=== PATIENT | female | born 1965 | race Caucasian/White ===

== ENCOUNTER 2016-05-04 09:50 | Emergency (ER) | payer OTHER ==
[~2016-05-04] VITALS: Wt 64.0 kg
[2016-05-04] MEDS ORDERED: KETOROLAC 60 MG INJ IM STA (10:16)
[2016-05-04] MEDS ORDERED: MED4DP PO (10:18)
[2016-05-04] MEDS ORDERED: TRAM50TA2 PO (10:18)
--- NOTE | 2016-05-04 11:26 | ERD ---
DATE OF SERVICE: HISTORY OF PRESENT ILLNESS: The patient is a 50-year-old female coming in complaining of bilateral arm pain. Patient states she has some neck pain. She states she has had the symptoms before. She takes Valier and meloxicam with no alleviation of symptoms. She denies any recent fevers, no recent falls. Denies any numbness or tingling down her arms, just burning sensation down bilateral arms. No swelling. MEDICAL HISTORY: Diabetes, hypercholesterolemia. ALLERGIES TO MEDICATIONS: DENIES. SURGICAL HISTORY: Ortho surgery to her left shoulder for ligamentous injury and cholecystectomy. SOCIAL HISTORY: Denies. REVIEW OF SYSTEMS: A 12-point review of systems was done. Refer to HPI for positives, all other sy stems negative. PHYSICAL EXAMINATION VITAL SIGNS: Temperature 98, pulse 75, blood pressure 121/70, respiratory rate 20, O2 saturation 99 % on room air. Pain intensity is 0/10. GENERAL: The patient is well-appearing, well-nourished, no acute distress. HEENT: Atraumatic. Conjunctivae are pink. Pupils equal, round, and reactive to light. There is no s cleral icterus. Tympanic membranes clear bilaterally. Oropharynx clear. No nystagmus or photophobia . CHEST: Clear to auscultation bilaterally. There are no rales, wheezes or rhonchi. HEART: Regular rate and rhythm. No murmurs, clicks, rubs or gallops. No S3 or S4. EXTREMITIES: The patient has normal music promoter strength bilaterally with normal radial, ulnar and median nerve innervation. Cap refill is less than 2 seconds. Pulses are intact. Compartments are soft. Patient has normal range of motion with normal strength to bilateral upper extremities with active a nd passive range of motion. SKIN: There is no apparent rash or petechia. The skin is warm and dry. NECK: The patient has mild tenderness to palpation over bilateral paraspinous cervical muscles. Th ere is no midline tenderness, no bony step-offs, no crepitus on exam. DIAGNOSIS: Cervical radiculopathy and nerve pain. MEDICAL DECISION MAKING: Patient is diabetic. There may be some concern for diabetic neuropathy ve rsus possible nerve impingement of the cervical spine causing pain down her bilateral upper extremit ies. I have low suspicion for weakness, low suspicion for acute fracture or dislocation, low suspic ion for a vascular or neuro deficit; the patient's exams are within normal limits. I did not feel t here was indication for imaging or blood work at this time. I have low suspicion for infectious minerva ology. Patient's vital signs are stable. The patient was given Toradol in the ER. DISCHARGE: The patient is discharged stable. Patient given prescription for Medrol Dosepak and tra madol and told to follow up with primary care within 1 to 2 days for reevaluation. Patient was told she may need a followup with orthopedist for further evaluation. The patient was given strict ER p recautions. All other questions answered at time of discharge. Discharge summary given at the time of departure. Patient understood and complied with plan. Dictated By: TYRESE ESPITIA PA for ADALBERTO GUERRERO/KRISTEN Conf#: [id number] DID#: [id number]
== END 2016-05-04 10:52 | disposition home or self-care (01) ==
LOC: FTE 09:50
DX: M54.12 Radiculopathy, cervical region (principal); M79.602 Pain in left arm; I10 Essential (primary) hypertension; E11.9 Type 2 diabetes mellitus without complications
CPT/HCPCS: 96372; J1885

== ENCOUNTER 2016-11-18 19:03 | Emergency (ER) | payer OTHER ==
[~2016-11-18] VITALS: Ht 160 cm; Wt 69.5 kg
[~2016-11-18 19:03] MED LIST: MED4DP PO; TRAM50TA2 PO
[2016-11-18 19:06] VITALS: Ht 160 cm; Wt 69.5 kg
[2016-11-18] MEDS ORDERED: PHEN-538 PO (20:34)
[2016-11-18] MEDS ORDERED: CEPH-443 PO (20:34)
[2016-11-18 20:36] LABS: URINE BLOOD (Dip) POC 1+ (NEGATIVE)
[2016-11-18 21:05] VITALS: BP 112/89; PULSE 69; RESP 20; TEMP 98.6
--- NOTE | 2016-11-18 23:44 | ERD ---
ER Documentation Chief Complaint Date/Time DATE: 11/18/16 TIME: 23:40 Chief Complaint painful urination x 2 days HPI 51-year-old female presents to the emergency department complaining of painful urination for the past 2 days. Patient denies any hematuria. She admits to having mild suprapubic pain rating it mild saying that it is pressure-like. She denies any fevers or flank pain. She denies taking any medications for the ROS All systems reviewed and are negative except as per history of present illness. Medications Home Meds Active Scripts Phenazopyridine Hcl* (Pyridium*) 200 Mg Tab, 200 MG PO TID Y for URINARY PAIN, # 15 TAB Prov:PAULINA BOWLES PA-C 11/18/16 Cephalexin* (Keflex*) 500 Mg Capsule, 500 MG PO TID for 10 Days, CAP Prov:PAULINA BOWLES PA-C 11/18/16 Tramadol HCl (Tramadol HCl) 50 Mg Tablet, 50 MG PO Q4 Y for PAIN, #20 TAB Prov:WINDY ESPITIA PA-C 05/04/16 Methylprednisolone* (Medrol* DOSE PACK) 4 Mg/Dose-Pack Tab.ds.pk, 4 MG PO . DIRECTED, #1 PACKET Prov:WINDY ESPITIA PA-C 05/04/16 Allergies Allergies: Coded Allergies: No Known Allergy (Unverified , 05/04/16) PMhx/Soc History of Surgery: Yes (gallbladder) Anesthesia Reaction: No Hx Neurological Disorder: No Hx Respiratory Disorders: No Hx Cardiac Disorders: Yes (htn) Hx Miscellaneous Medical Probl: Yes (dm, chronic L arm "inflammation") Hx Alcohol Use: No Hx Substance Use: No Hx Tobacco Use: No Physical Exam Vitals Vital Signs Date Time Temp Pulse Resp B/P Pulse Ox O2 Delivery O2 Flow Rate FiO2 11/18/16 21:05 98.6 69 20 112/89 96 Room Air 11/18/16 19:06 98.3 73 20 122/84 100 Physical Exam General: well-developed/well-nourished, in no apparent distress, non-toxic appearing HENT: NC/AT Eyes: Conjunctiva normal Neck: Supple Pulm: CTA bilaterally, normal breathing CV: Normal S1S2 GI: Soft, non-distended, normal bowel sounds, TTP on suprapubic region Back: No midline tenderness, no masses, No CVAT Ext: No clubbing, cyanosis, or edema Neuro: Alert and orientated Skin: intact, normal turgor Psych: Normal mood and mentation Results 24 hrs Laboratory Tests Test 11/18/16 20:43 Bedside Urine pH (LAB) 7.0 Bedside Urine Protein (LAB) Negative Bedside Urine Glucose (UA) Negative Bedside Urine Ketones (LAB) Negative Bedside Urine Blood 1+ Bedside Urine Nitrite (LAB) Negative Bedside Urine Leukocyte Esterase (L 2+ Procedures/MDM MDM: 51-year-old female presents to the ER with urinary tract infection. Low suspicion for pyelonephritis, nephrolithiasis, ovarian torsion due to physical examination and diagnostic testing. Urine dipstick was positive for urinary tract infection Disposition: Patient is in stable condition and hemodynamically stable for discharge. Prescriptions Keflex and Pyridium have been given to take as directed. Strict precautions were given to return to the ER if not improving as expected or for any worsening signs and symptoms Departure Diagnosis: Primary Impression: UTI (urinary tract infection) Condition: Stable Patient Instructions: Understanding Urinary Tract Infections (UTIs) Referrals: NO [facility]IMARY[facility] Usted se lowery hecho un examen mdico de control que le indica que no est en kristel condicin que requiera tratamiento urgente en el Departamento de Emergencia. Un estudio ms profundo y el tratamiento de mireles condicin pueden esperar sin ningn riesgo hasta que usted sea atendida/o en el consultorio de mireles mdico o kristel cl sara. Es responsabilidad suya arreglar kristel angelo para el seguimiento del tasha. MANEJO DE CONDICIONES NO URGENTES EN EL FUTURO 1) Si usted tiene un mdico de atencin primaria: Usted debera llamar a mireles mdico de atencin primaria antes de venir al departamento de emergencia. Despus de las horas de consultorio, mireles doctor o mireles asociado/a est disponible por telfono. El mdico o enfermero de ava en el servicio telefnico puede asesorarle por forest medio para atender el problema, o tasha contrario se puede programar kristel angelo. 2) Si usted no tiene un mdico de atencin primaria: Llame al mdico o clnica de referencia que aparece abajo levi las horas de consultorio para hacer kristel angelo para que le vean. CLINICAS: [facility] [phone] [facility] [phone] [facility] [phone] [place] [id number] [phone] [place] [address] [phone] [facility] [phone] [address] Additional Instructions: Visite a mireles mdico maana para un EXAMEN.Regrese a estas instalaciones si no se mejora maci esperbamos o maci le dijimos. [place] toda la medicina alisha y maci se le indic. Regrese a estas instalaciones si no se mejora maci esperbamos o maci le dijimos. PAULINA BOWLES PA-C Nov 18, 2016 23:44
== END 2016-11-18 21:16 | disposition home or self-care (01) ==
LOC: FTE 19:03
DX: N39.0 Urinary tract infection, site not specified (principal); I10 Essential (primary) hypertension; E11.9 Type 2 diabetes mellitus without complications
CPT/HCPCS: 81003; 87086; 99283